=== PATIENT | male | born 1940 | race Caucasian/White ===

== ENCOUNTER 2019-09-19 11:30 | Emergency (ER) | payer MEDICARE ==
[~2019-09-19] VITALS: Ht 180.3 cm; Wt 93.9 kg
[2019-09-19] MEDS ORDERED: LIPITOR10 MG PO (11:44)
[2019-09-19] MEDS ORDERED: D3-200050 MCG PO (11:45)
[2019-09-19] MEDS ORDERED: DULOXETINE HCL60 MG PO (11:45)
[2019-09-19] MEDS ORDERED: DOK100 MG PO (11:45)
[2019-09-19] MEDS ORDERED: FISH OIL 1,0001 EAC2 PO (11:46)
[2019-09-19] MEDS ORDERED: GARLIC1 EAC1 PO (11:46)
[2019-09-19] MEDS ORDERED: ZESTRIL2.5 MG PO (11:47)
[2019-09-19] MEDS ORDERED: FLAGYL500 MG PO (11:47)
[2019-09-19] MEDS ORDERED: MULTI VITAMIN1 EACH PO (11:47)
[2019-09-19] MEDS ORDERED: LEVEMIR100 UNIT/1 SUB-Q (11:47)
[2019-09-19] MEDS ORDERED: RISPERDAL0.5 MG PO (11:48)
[2019-09-19] MEDS ORDERED: OLANZAPINE2.5 MG PO (11:48)
[2019-09-19] MEDS ORDERED: NOVOLOG100 UNIT/1 SUB-Q (11:48)
[2019-09-19] MEDS ORDERED: SYMBICORT 16010.2 GM INH (11:49)
[2019-09-19] MEDS ORDERED: VENTOLIN HFA18 GM INH (11:49)
[2019-09-19] MEDS ORDERED: FLOMAX0.4 MG PO (11:49)
[2019-09-19] MEDS ORDERED: NORCO 5-325 TA1 EACH PO (11:50)
--- OUTSIDE RECORDS SUMMARY | 2019-09-19 14:08 | XMS ---
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 Rafael VISIT COUNT (12 MO.) 2 [facility] TOTAL 3 NOTE: Visits indicate total known visits. ED/UCC VISIT TRACKING (12 MO.) 09/19/2019 11:31 [facility] [place] TYPE: Emergency COMPLAINT: - FALL, RIB PAIN 09/07/2019 16:14 [facility] [place] [facility] Emergency DIAGNOSES: 92065. FALL LOWER BACK PAIN . Multiple fractures of ribs, right side, init for clos fx 09/05/2019 09:23 [facility] [place] [facility]: Emergency DIAGNOSES: [address]. [place] [address]. Hypoglycemia, unspecified INPATIENT VISIT TRACKING (12 MO.) 09/07/2019 16:[facility] DIAGNOSES: . Multiple fractures of ribs, right side, init for clos fx [facility]/2019 [facility] DIAGNOSES: 88621. 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
[2019-09-19] MEDS ORDERED: MAGNESIUM400 M1 PO (15:44)
--- NOTE | 2019-09-20 07:41 | EKG ---
[facility] [address] [place], [place] [address] Signed Normal sinus rhythm Normal ECG No previous ECGs available Confirmed by ELY BELL MD ([id number]) on 09/20/2019 7:41:12 AM Electronically Signed By: ELY BELL MD 09/20/19 0741 PATIENT NAME: NICKY LAWS Electrocardiogram DATE OF : 38 PHYSICIAN: ELY BELL MD REPORT #: [id number] REPORT IS CONFIDENTIAL AND NOT TO BE RELEASED WITHOUT AUTHORIZATION
== END 2019-09-19 16:34 | disposition home or self-care (01) ==
LOC: ED 11:30
DX: S22.41XA Multiple fractures of ribs, right side, initial encounter for closed fracture (principal); E83.42 Hypomagnesemia; W18.30XA Fall on same level, unspecified, initial encounter; I10 Essential (primary) hypertension; E11.9 Type 2 diabetes mellitus without complications; Z87.891 Personal history of nicotine dependence; Z88.0 Allergy status to penicillin; Z88.8 Allergy status to other drugs, medicaments and biological substances; Z79.899 Other long term (current) drug therapy; Z79.4 Long term (current) use of insulin
CPT/HCPCS: 70450; 71260; 72125; 74177; 80053; 80176; 81001; 83690; 83735; 84443; 84484; 85025; 93005; 93010; 99284-25; G0480; Q9967

== ENCOUNTER 2019-11-15 14:03 | Emergency (ER) | payer MEDICARE, OTHER ==
[~2019-11-15] VITALS: Ht 180.3 cm; Wt 90.7 kg
[~2019-11-15 14:03] MED LIST: D3-200050 MCG PO; DOK100 MG PO; DULOXETINE HCL60 MG PO; FISH OIL 1,0001 EAC2 PO; FLAGYL500 MG PO; FLOMAX0.4 MG PO; GARLIC1 EAC1 PO; LEVEMIR100 UNIT/1 SUB-Q; LIPITOR10 MG PO; MAGNESIUM400 M1 PO; MULTI VITAMIN1 EACH PO; NORCO 5-325 TA1 EACH PO; NOVOLOG100 UNIT/1 SUB-Q; OLANZAPINE2.5 MG PO; RISPERDAL0.5 MG PO; SYMBICORT 16010.2 GM INH; VENTOLIN HFA18 GM INH; ZESTRIL2.5 MG PO
[2019-11-15] MEDS ORDERED: NORCO 5-325 TA1 EACH PO (16:24)
[2019-11-15] MEDS ORDERED: BACTRIM DS TAB1 EACH PO (16:24)
[2019-11-15] MEDS ORDERED: KEFLEX500 MG PO (16:24)
== END 2019-11-15 16:49 | disposition home or self-care (01) ==
LOC: ED 14:03
DX: L03.113 Cellulitis of right upper limb (principal); I10 Essential (primary) hypertension; E78.00 Pure hypercholesterolemia, unspecified; E11.9 Type 2 diabetes mellitus without complications; Z87.891 Personal history of nicotine dependence; Z79.899 Other long term (current) drug therapy
CPT/HCPCS: 80053; 85025; 86140; 96365; 99283-25; A9270; J3370

== ENCOUNTER 2019-11-16 07:55 | Emergency (ER) | payer MEDICARE, OTHER ==
[~2019-11-16] VITALS: Ht 180.3 cm; Wt 90.7 kg
[~2019-11-16 07:55] MED LIST changes: +BACTRIM DS TAB1 EACH PO; +KEFLEX500 MG PO
--- OUTSIDE RECORDS SUMMARY | 2019-11-16 07:58 | XMS ---
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 Care History Medical/Surgical 09/20/2019 [facility] - PATIENT CURRENTLY RESIDES AT [facility]. Rafael VISIT COUNT (12 MO.) 2 [facility] 3 [facility]. TOTAL 5 NOTE: Visits indicate total known visits. ED/UCC VISIT TRACKING (12 MO.) 11/16/2019 07:55 [facility] [place] TYPE: Emergency COMPLAINT: - RIGHT ARM PAIN 11/15/2019 14:03 [facility] [place] TYPE: Emergency COMPLAINT: - FALL, RIGHT ARM PAIN 09/19/2019 11:31 [facility] [place] TYPE: Emergency COMPLAINT: - FALL, RIB PAIN DIAGNOSES: - Allergy status to penicillin - Other prison (current) drug therapy - Multiple fractures of ribs, right side, initial encounter for - Type 2 diabetes mellitus without complications - Hypomagnesemia - Multiple fractures of ribs, right side, initial encounter for - Allergy status to other drugs, medicaments and biological sub - group home (current) use of insulin - Fall on same level, unspecified, initial encounter - Essential (primary) hypertension - Personal history of nicotine dependence 09/07/2019 16:14 [facility] [place] TYPE: Emergency DIAGNOSES: 98432. FALL LOWER BACK PAIN 45289. Multiple fractures of ribs, right side, initial encounter for 09/05/2019 09:23 [facility] [place] TYPE: Emergency DIAGNOSES: [address]. [place] [address]. Hypoglycemia, unspecified INPATIENT VISIT TRACKING (12 MO.) 09[facility]07/2019 [facility] [place] [facility] DIAGNOSES: . Multiple fractures of ribs, right side, initial encounter for 01/31/2019 08[facility] DIAGNOSES: 78534. 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
== END 2019-11-16 10:59 | disposition home or self-care (01) ==
LOC: ED 07:55
DX: L03.113 Cellulitis of right upper limb (principal); I10 Essential (primary) hypertension; E11.9 Type 2 diabetes mellitus without complications; Z87.891 Personal history of nicotine dependence; Z79.899 Other long term (current) drug therapy
CPT/HCPCS: 96365; 96366; 99283-25; J1815; J3370; J7060

== ENCOUNTER 2019-11-24 13:58 | Emergency (ER) | payer MEDICARE, OTHER ==
[~2019-11-24] VITALS: Ht 180.3 cm; Wt 81.7 kg
--- OUTSIDE RECORDS SUMMARY | 2019-11-24 14:02 | XMS ---
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 Care History Medical/Surgical 11/19/2019 [facility] - PATIENT NANCY STATED THEY ARE GOING TO ESTABLISH CARE WITH DR BARAHONA OFFICE BECAUSE HER SON CURRENTLY HAS DR BARAHONA HIS PCP. \T\nbsp; 11/19/2019 [facility] - SPOKE WITH RN ON STAFF AT [facility]- - PLEASE SEND ALL ER/INPATIENT RECORDS TO BOTH PROVIDERS LISTED BELOW THEY BOTH PROVIDE MED MANAGEMENT FOR PATIENT. ROSA PALMER MD Family Medicine Sources: [address] [place] [address] RAFITA Lay NP Nurse Practitioner: Adult Health Sources: 1 Practice 09/20/2019 [facility] - PATIENT CURRENTLY RESIDES AT [facility]. Rafael VISIT COUNT (12 MO.) [address] [place] TOTAL 6 NOTE: Visits indicate total known visits. 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 11/15/2019 14:03 [facility] [place] TYPE: Emergency COMPLAINT: - FALL, RIGHT ARM PAIN DIAGNOSES: - Personal history of nicotine dependence - Other [facility] (current) drug therapy - Type 2 diabetes mellitus without complications - Pure hypercholesterolemia, unspecified - Other specified soft tissue disorders - Cellulitis of right upper limb - Essential (primary) hypertension 09/19/2019 11:31 [facility] [place] TYPE: Emergency COMPLAINT: - FALL, RIB PAIN DIAGNOSES: - Allergy status to penicillin - 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 FALL LOWER BACK PAIN . Multiple fractures of ribs, right side, initial encounter for 09/05/2019 09:23 [facility] [place] TYPE: Emergency DIAGNOSES: [address]. [place] [address]. Hypoglycemia, unspecified INPATIENT VISIT TRACKING (12 MO.) 09/07/2019 16:14 [facility] DIAGNOSES: . Multiple fractures of ribs, right side, initial encounter for [facility]2019 [facility] DIAGNOSES: 69165. 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
--- NOTE | 2019-11-26 21:40 | EKG ---
[facility] [address] [place] [address] Signed Normal sinus rhythm Normal ECG When compared with ECG of 19-SEP-2019 11:59, T wave amplitude has decreased in Anterior leads Confirmed by LEMUEL POLANCO MD ([id number]) on 11/26/2019 9:40:39 PM Electronically Signed By: LEMUEL POLANCO MD 11/26/192139 PATIENT NAME: NICKY LAWS IRIS Electrocardiogram DATE OF : 38 PHYSICIAN: LEMUEL POLANCO MD REPORT #: [id number] REPORT IS CONFIDENTIAL AND NOT TO BE RELEASED WITHOUT AUTHORIZATION
== END 2019-11-24 18:25 | disposition home or self-care (01) ==
LOC: ED 13:58
DX: R53.1 Weakness (principal); E11.9 Type 2 diabetes mellitus without complications; I10 Essential (primary) hypertension; E78.00 Pure hypercholesterolemia, unspecified; Z87.891 Personal history of nicotine dependence; Z88.0 Allergy status to penicillin; Z88.8 Allergy status to other drugs, medicaments and biological substances; Z79.4 Long term (current) use of insulin; Z79.899 Other long term (current) drug therapy
CPT/HCPCS: 71045; 80053; 81001; 84484; 85025; 93005; 93010; 99285-25; J7030

== ENCOUNTER 2020-07-06 08:55 | Emergency (ER) | payer MEDICARE, OTHER ==
[~2020-07-06] VITALS: Ht 180.3 cm; Wt 81.6 kg
--- OUTSIDE RECORDS SUMMARY | 2020-07-06 08:58 | XMS ---
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 Care History Medical/Surgical 11/19/2019 [facility] - PATIENT NANCY STATED THEY ARE GOING TO ESTABLISH CARE WITH DR BARAHONA OFFICE BECAUSE HER SON CURRENTLY HAS DR BARAHONA HIS PCP. \T\nbsp; 11/19/2019 [facility] - SPOKE WITH RN ON STAFF AT [facility]- - PLEASE SEND ALL ER/INPATIENT RECORDS TO BOTH PROVIDERS LISTED BELOW THEY BOTH PROVIDE MED MANAGEMENT FOR PATIENT. ROSA PALMER MD Family Medicine Sources: 1 Practice R, RAFITA GURROLA NP Nurse Practitioner: Adult Health Sources: 1 Practice 09/20/2019 [facility] - PATIENT CURRENTLY RESIDES AT [facility]. E.D. VISIT COUNT (12 MO.) [address] TOTAL 7 NOTE: Visits indicate total known visits. 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 - Allergy status to other drugs, medicaments and biological substances - Allergy status to penicillin - Other assisted (current) drug therapy - Personal history of nicotine dependence 11/16/2019 07:55 [facility] [place] TYPE: Emergency COMPLAINT: - RIGHT ARM PAIN NON INJURY DIAGNOSES: - Essential (primary) hypertension - Type 2 diabetes mellitus without complications - Cellulitis of right upper limb - Personal history of nicotine dependence - 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 11/15/2019 14:03 [facility] [place] TYPE: Emergency COMPLAINT: - FALL, RIGHT ARM PAIN DIAGNOSES: - Allergy status to other drugs, medicaments and biological substances - retirement (current) use of insulin - Allergy status to other antibiotic agents - Personal history of nicotine dependence - Other assisted (current) drug therapy - Type 2 diabetes mellitus without complications - Pure hypercholesterolemia, unspecified - Other specified soft tissue disorders - Cellulitis of right upper limb - Essential (primary) hypertension 09/19/2019 11:31 [facility] [place] TYPE: Emergency COMPLAINT: - FALL, RIB PAIN DIAGNOSES: - Allergy status to penicillin - Other assisted (current) drug therapy - Multiple fractures of ribs, right side, initial encounter for closed fracture - Type 2 diabetes mellitus without complications - Hypomagnesemia - Multiple fractures of ribs, right side, initial encounter for closed fracture - Allergy status to other drugs, medicaments and biological substances - retirement (current) use of insulin - Fall on same level, unspecified, initial encounter - Essential (primary) hypertension - Personal history of nicotine dependence 09/07/2019 [facility] [place] [facility] DIAGNOSES: 78995. FALL LOWER BACK PAIN 86155. Multiple fractures of ribs, right side, initial encounter for closed fracture [facility]05/2019 09[facility] DIAGNOSES: [address]. [facility] [address]. Hypoglycemia, unspecified INPATIENT VISIT TRACKING (12 MO.) 09/07/2019 16[facility] DIAGNOSES: 27030. Multiple fractures of ribs, right side, initial encounter for closed fracture [id number]
== END 2020-07-06 12:53 | disposition home or self-care (01) ==
LOC: ED 08:55
DX: E11.649 Type 2 diabetes mellitus with hypoglycemia without coma (principal); I10 Essential (primary) hypertension; E78.00 Pure hypercholesterolemia, unspecified; Z87.891 Personal history of nicotine dependence; Z88.0 Allergy status to penicillin; Z88.8 Allergy status to other drugs, medicaments and biological substances; Z79.899 Other long term (current) drug therapy; Z79.4 Long term (current) use of insulin
CPT/HCPCS: 80053; 81001; 84484; 85025; 96374; 99285-25; J7030